=== PATIENT | female | born 1980 | race Caucasian/White ===

== ENCOUNTER 2017-08-26 05:36 | Day surgery (SDC) | payer BC, OTHER ==
[~2017-08-26] VITALS: Ht 147.3 cm; Wt 64.0 kg
[~2017-08-26 05:36] MED LIST: IBUP-1484 PO; VALA500T PO; WEIGHT LOSS PO; [UNRECOGNIZED DRUG - OTHER]; [UNRECOGNIZED DRUG - OTHER] PO; [UNRECOGNIZED DRUG - OTHER] PO
[2017-08-26] MEDS ORDERED: LACTATED RINGERS 1,000 ML IV SCH (06:04)
[2017-08-26 06:19] VITALS: BP 117/76
[2017-08-26] MEDS ORDERED: MIDAZOLAM 1 MG/ML, 2ML ONE ×2 (06:51→10:27)
[2017-08-26] MEDS ORDERED: FENTANYL PF 250 MCG/5ML ONE (06:51)
[2017-08-26] MEDS ORDERED: ROCURONIUM 10MG/ML,5ML ONE (06:55)
[2017-08-26] MEDS ORDERED: PROPOFOL 10 MG/ML, 20ML ONE (06:55)
[2017-08-26] MEDS ORDERED: NEOSTIGMINE 1 MG/ML, 10ML ONE (06:57)
[2017-08-26] MEDS ORDERED: GLYCOPYRROLATE 0.4 MG/2 ML, 2ML ONE ×2 (06:57→10:10)
[2017-08-26] MEDS ORDERED: DEXAMETHASONE 4 MG/ML, 1ML ONE ×2 (06:59)
[2017-08-26] MEDS ORDERED: ONDANSETRON ODT 8 MG PO ONE (07:00)
[2017-08-26] MEDS ORDERED: SCOPOLAMINE PATCH, 1.5MG PATCH.TD72 TD ONE (07:00)
[2017-08-26] MEDS ORDERED: ACETAMINOPHEN 500 MG TABLET PO ONE (07:00)
[2017-08-26] MEDS ORDERED: OxyconTIN ER 20 MG TAB.ER PO ONE (07:00)
[2017-08-26] MEDS ORDERED: GABAPENTIN 300 MG CAPSULE PO ONE (07:00)
[2017-08-26] MEDS ORDERED: BUPIVACAINE/PF 0.25% ONE (07:08)
[2017-08-26] MEDS ORDERED: INDIGO CARMINE 0.8%, 5ML ONE (07:08)
[2017-08-26] MEDS ORDERED: HYDROmorphone 1 MG/ML, 1ML IV PRN (07:30)
[2017-08-26] MEDS ORDERED: ONDANSETRON ODT 8 MG PO PRN (07:30)
[2017-08-26] MEDS ORDERED: OXYcodone 5 MG/5 ML ORAL.SOL UDC PO PRN (07:30)
[2017-08-26] MEDS ORDERED: FENTANYL PF 100 MCG/2ML IV PRN (07:30)
[2017-08-26] MEDS ORDERED: MORPHINE SULFATE 4 MG/ML, 1ML IVPush PRN (07:30)
[2017-08-26] MEDS ORDERED: PROMETHAZINE 25 MG/ML, 1ML IV PRN (07:30)
[2017-08-26] MEDS ORDERED: PROMETHAZINE 12.5 MG SUPP PR PRN (07:30)
[2017-08-26] MEDS ORDERED: PROMETHAZINE 25 MG SUPP PR PRN (07:30)
[2017-08-26] MEDS ORDERED: LABETALOL 5MG/ML, 20ML IV PRN (07:30)
[2017-08-26] MEDS ORDERED: hydrALAzine 20 MG/ML, 1ML IV PRN (07:30)
[2017-08-26] MEDS ORDERED: FENTANYL PF 100 MCG/2ML ONE (09:07)
[2017-08-26] MEDS ORDERED: KETOROLAC 30 MG/1 ML ONE (09:56)
[2017-08-26] MEDS: MEPERIDINE/PF 25MG/0.5ML IVPush PRN ×2 (10:26→10:41)
[2017-08-26] MEDS ORDERED: MEPERIDINE/PF 25MG/0.5ML ONE (10:27)
[2017-08-26] MEDS: MIDAZOLAM 1 MG/ML, 2ML IV PRN ×2 (10:28→10:39)
[2017-08-26] MEDS ORDERED: OXYcodone 5 MG/5 ML ORAL.SOL UDC ONE (10:58)
== END 2017-08-26 16:40 | disposition home or self-care (01) ==
LOC: OUT 05:36
PROVIDERS: ATTEND Specialist
DX: D25.1 Intramural leiomyoma of uterus (principal); N92.0 Excessive and frequent menstruation with regular cycle; N94.6 Dysmenorrhea, unspecified; N80.9 Endometriosis, unspecified; N94.89 Other specified conditions associated with female genital organs and menstrual cycle; Z98.890 Other specified postprocedural states; Z90.81 Acquired absence of spleen; Z87.891 Personal history of nicotine dependence
CPT/HCPCS: 58571; 58662; 81025; 88305; 88307; J1100; J1885; J2175; J2250; J2704; J2710; J3010; J3490; J7120; Q0162; S2900